=== PATIENT | female | born 1970 | race Caucasian/White ===

== ENCOUNTER → 2025-02-18 09:45 | Outpatient (CLI) | payer OTHER | END | disposition home or self-care (01) | LOC: LAB 09:45 | DX: H59.4 Inflammation (infection) of postprocedural bleb (principal); H44.009 Unspecified purulent endophthalmitis, unspecified eye ==

== ENCOUNTER 2025-03-21 12:12 | Outpatient (CLI) | payer OTHER | END 2025-03-21 12:19 | disposition home or self-care (01) | LOC: LAB 12:12 | DX: H44.19 Other endophthalmitis (principal) ==